=== PATIENT | female | born 1955 | race Caucasian/White ===

== ENCOUNTER 2021-04-23 11:19 | Emergency (ER) | payer MEDICARE, MEDICAID ==
[~2021-04-23] VITALS: Ht 165.1 cm; Wt 82.7 kg
--- NOTE | 2021-04-23 11:38 | RAD ---
EXAM: Chest, single view. HISTORY: Chest pain. COMPARISON: None. FINDINGS: A frontal view of the chest is obtained. There is no infiltrate, pleural effusion or pneumo thorax. The heart is normal in size. IMPRESSION: No acute pulmonary finding. Electronically signed by: Gypsy Romano MD (04/23/2021 11:36 AM) [id number]
--- NOTE | 2021-04-23 12:01 | PHYS DOC ---
Past Medical History Past Surgical History: No Surgical History Smoking Status: Never Smoker Alcohol Use: None General Adult EDM: Chief Complaint: CHEST PAIN HPI: HPI: Patient is a 66 year old female who present to ER for evaluation of epigastric abdominal pain chest pain off and on for 2 weeks. Patient described the pain as pressure and aching in nature. Patient said last night she started having the symptoms again, did not get any better this morning so she came in here for evaluation. Patient denies any cough or fever. Denies any history of diabetic or hypertension, denies history of blood clot disorder, denies history of coronary artery disease, denies any family history of coronary disease. Patient is not a smoker, denies any recent travel operation. Patient says she was recently found to have high cholesterol level. Her doctor prescribed her anticholesterol medication but she has not taken any yet. Review of Systems: Review of Systems: Constitutional: Denies fever or chills. [] Eyes: Denies change in visual acuity. [] HENT: Denies nasal congestion or sore throat. [] Respiratory: Denies cough or shortness of breath. [] Cardiovascular: Positive for chest pain, no edema GI: Positive for epigastric abdominal pain, no nausea vomiting, no diarrhea. : Denies dysuria. [] Musculoskeletal: Denies back pain or joint pain. [] Integument: Denies rash. [] Neurologic: Denies headache, focal weakness or sensory changes. [] Endocrine: Denies polyuria or polydipsia. [] Lymphatic: Denies swollen glands. [] Psychiatric: Denies depression or anxiety. [] Heart Score: C/O Chest Pain: Yes HEART Score for Chest Pain: HEART Score for Chest Pain Response (Comments) Value History Slighlty/Non-Suspicious 0 ECG Normal 0 Age > 65 2 Risk Factors 1 or 2 Risk Factors 1 Troponin < Normal Limit 0 Total 3 Risk Factors: Risk Factors: DM, Current or recent (<one month) smoker, HTN, HLP, family history of CAD, obesity. Risk Scores: Score 0 - 3: 2.5% MACE over next 6 weeks - Discharge Home Score 4 - 6: 20.3% MACE over next 6 weeks - Admit for Clinical Observation Score 7 - 10: 72.7% MACE over next 6 weeks - Early Invasive Strategies Allergies: Allergies: Allergies Coded Allergies Type Severity Reaction Last Updated Verified No Known Drug Allergies 2/11/22 No Physical Exam: PE: Constitutional: Well developed, well nourished, no acute distress, non-toxic appearance. [] HENT: Normocephalic, atraumatic, bilateral external ears normal, oropharynx moist, no oral exudates, nose normal. [] Eyes: PERRLA, EOMI, conjunctiva normal, no discharge. [] Neck: Normal range of motion, no tenderness, supple, no stridor. [] Cardiovascular:Heart rate regular rhythm, no murmur [] Lungs & Thorax: Bilateral breath sounds clear to auscultation [] Abdomen: Bowel sounds normal, soft, no tenderness, no masses, no pulsatile masses. [] Skin: Warm, dry, no erythema, no rash. [] Back: No tenderness, no CVA tenderness. [] Extremities: No tenderness, no cyanosis, no clubbing, ROM intact, no edema. [] Neurologic: Alert and oriented X 3, normal motor function, normal sensory function, no focal deficits noted. [] Psychologic: Affect normal, judgement normal, mood normal. [] Current Patient Data: Labs: Laboratory Tests Test 04/23/21 11:55 04/23/21 14:25 White Blood Count 6.5 x10^3/uL Red Blood Count 4.54 x10^6/uL Hemoglobin 13.6 g/dL Hematocrit 41.1 % Mean Corpuscular Volume 91 fL Mean Corpuscular Hemoglobin 30 pg Mean Corpuscular Hemoglobin Concent 33 g/dL Red Cell Distribution Width 13.1 % Platelet Count 308 x10^3/uL Neutrophils (%) (Auto) 55 % Lymphocytes (%) (Auto) 32 % Monocytes (%) (Auto) 8 % Eosinophils (%) (Auto) 4 % Basophils (%) (Auto) 1 % Neutrophils # (Auto) 3.6 x10^3/uL Lymphocytes # (Auto) 2.1 x10^3/uL Monocytes # (Auto) 0.5 x10^3/uL Eosinophils # (Auto) 0.3 x10^3/uL Basophils # (Auto) 0.0 x10^3/uL Sodium Level 144 mmol/L Potassium Level 4.8 mmol/L Chloride Level 107 mmol/L Carbon Dioxide Level 29 mmol/L Anion Gap 8 Blood Urea Nitrogen 17 mg/dL Creatinine 0.7 mg/dL Estimated GFR (Cockcroft-Gault) 83.7 BUN/Creatinine Ratio 24 Glucose Level 95 mg/dL Calcium Level 8.8 mg/dL Magnesium Level 2.3 mg/dL Total Bilirubin 0.3 mg/dL Aspartate Amino Transf (AST/SGOT) 18 U/L Alanine Aminotransferase (ALT/SGPT) 27 U/L Alkaline Phosphatase 110 U/L Troponin I High Sensitivity 6 ng/L 5 ng/L MN-Scy-I-Type Natriuretic Peptide 53 pg/mL Total Protein 6.8 g/dL Albumin 3.4 g/dL Albumin/Globulin Ratio 1.0 Lipase 165 U/L Current Medications Medications (Trade) Dose Ordered Sig/Michael Route PRN Reason Start Time Stop Time Status Last Admin Dose Admin Famotidine (Pepcid) 20 mg 1X ONCE PO 04/23/21 12:15 04/23/21 12:16 DC Multi-Ingredient Mouthwash/Gargle (Gi Cocktail) 20 ml 1X ONCE SWSW 04/23/21 12:15 04/23/21 12:16 DC Multi-Ingredient Mouthwash/Gargle (Gi Cocktail) 20 ml STK-MED ONCE .ROUTE 04/23/21 12:05 04/23/21 12:05 DC Famotidine (Pepcid Vial) 20 mg STK-MED ONCE .ROUTE 04/23/21 12:05 04/23/21 12:05 DC Vital Signs: Vital Signs Date Time Temp Pulse Resp B/P (MAP) Pulse Ox O2 Delivery O2 Flow Rate FiO2 04/23/21 11:19 97.6 78 16 162/86 (111) 98 Room Air 97.6 EKG: EKG: EKG was done at 1124, heart rate of 73 bpm, sinus rhythm, no ST segment elevation, normal axis. Radiology/Procedures: Radiology/Procedures: [facility] [address] [place] [address] IMAGING REPORT Signed PATIENT: GARY IGLESIAS ACCOUNT: [id number] : 1955 LOCATION: ER AGE: 66 SEX: F EXAM STATUS: PRE ER ORD. PHYSICIAN: MARCO LOVE DO REASON: chest pain PROCEDURE: PORTABLE CHEST 1V EXAM: Chest, single view. HISTORY: Chest pain. COMPARISON: None. FINDINGS: A frontal view of the chest is obtained. There is no infiltrate, pl eural effusion or pneumothorax. The heart is normal in size. IMPRESSION: No acute pulmonary finding. Electronically signed by: Gypsy Romano MD (04/23/2021 11:36 AM) [id number] DICTATED and SIGNED BY: GYPSY ROMANO MD DATE: 04/23/21 [id number] Course & Med Decision Making: Course & Med Decision Making Pertinent Labs and Imaging studies reviewed. (See chart for details) Patient is a 66-year-old female who present to ER for evaluation of epigastric abdominal pain chest pain off and on for 2 weeks. EKG and cardiac enzymes came back normal. Her lab work are reassuring. Her cardiac risk factor is low. Patient will be discharged home with antiacid medication, she will need to fol low-up with her family physician next week for reevaluation. Ottoniel Disclaimer: Ottoniel Disclaimer: This electronic medical record was generated, in whole or in part, using a voice recognition dictation system. Departure Departure Impression: Primary Impression: Chest pain Additional Impression: Gastritis Disposition: HOME / SELF CARE / HOMELESS Condition: STABLE Patient Instructions: Chest Pain (Nonspecific), Gastritis, Adult Additional Instructions: Thank you for visiting our Emergency Department. We appreciate you trusting us with your care. If any additional problems come up don't hesitate to return to visit us. Please follow up with your primary care provider so they can plan additional care if needed and know about the problem that you had. If symptoms worsen come back to the Emergency Department. Any concerning symptoms that start such as chest pain, shortness of air, weakness or numbness on one side of the body, running high fevers or any other concerning symptoms return to the ER. Scripts Sucralfate (CARAFATE) 1 Gm Tablet 1 TAB PO QID for 14 Days, #56 TAB 0 Refills Prov: MARCO LOVE DO 04/23/21 Omeprazole Magnesium (PRILOSEC OTC) 20 Mg Tablet. 1 TAB PO DAILY for 30 Days, #30 TAB 0 Refills Prov: MARCO LOVE DO 04/23/21 MARCO LOVE DO Apr 23, 2021 12:01
[2021-04-23] MEDS ORDERED: LIDO:MAALOX 1:1 20 ML SINGLE DOSE. ONE (12:05)
[2021-04-23] MEDS ORDERED: FAMOTIDINE 20 MG/2 ML VIAL ONE (12:05)
[2021-04-23] MEDS ORDERED: FAMOTIDINE 20 MG TABLET. PO ONE (12:15)
[2021-04-23] MEDS ORDERED: LIDO:MAALOX 1:1 20 ML SINGLE DOSE. SWSW ONE (12:15)
[2021-04-23 12:17] LABS: BASO % 1 % (0-3); EOS # 0.3 x10^3/uL (0.0-0.7); EOS % 4 % (0-3); HEMATOCRIT 41.1 % (36.0-47.0); HEMOGLOBIN 13.6 g/dL (12.0-15.5); LYMPH # 2.1 x10^3/uL (1.0-4.8); LYMPH % 32 % (24-48); MEAN CORPUSCULAR HEMOGLOBIN 30 pg (25-35); MEAN CORPUSCULAR HGB CONC 33 g/dL (31-37); MEAN CORPUSCULAR VOLUME 91 fL (79-100); MONO # 0.5 x10^3/uL (0.0-1.1); MONO % 8 % (0-9); NEUT # 3.6 x10^3/uL (1.8-7.7); NEUT % 55 % (31-73); PLATELET COUNT 308 x10^3/uL (140-400); RED BLOOD COUNT 4.54 x10^6/uL (3.50-5.40); RED CELL DISTRIBUTION WIDTH 13.1 % (11.5-14.5); WHITE BLOOD COUNT 6.5 x10^3/uL (4.0-11.0)
[2021-04-23 12:21] LABS: CALCIUM 8.8 mg/dL (8.5-10.1); CREATININE 0.7 mg/dL (0.6-1.0); GFR 83.7; POTASSIUM 4.8 mmol/L (3.5-5.1)
[2021-04-23 12:25] LABS: ALBUMIN 3.4 g/dL (3.4-5.0); MAGNESIUM 2.3 mg/dL (1.8-2.4); TOTAL BILIRUBIN 0.3 mg/dL (0.2-1.0); TOTAL PROTEIN 6.8 g/dL (6.4-8.2)
[2021-04-23 14:19] VITALS: BP 145/75
[2021-04-23] MEDS ORDERED: OMEP20TA63 PO (15:08)
[2021-04-23] MEDS ORDERED: SUCR1TAB35 PO (15:08)
--- NOTE | 2021-04-24 02:18 | EKG ---
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
== END 2021-04-23 15:20 | disposition home or self-care (01) ==
LOC: ER 11:19
DX: R07.89 Other chest pain (principal); K29.70 Gastritis, unspecified, without bleeding
CPT/HCPCS: 36415; 71045; 80053; 83690; 83735; 83880; 84484; 85025; 93005; 99285-25